=== PATIENT | female | born 1985 | race African-American/Black ===

== ENCOUNTER 2022-07-11 09:01 | Emergency (ER) | payer OTHER ==
[~2022-07-11] VITALS: Ht 160 cm; Wt 62.0 kg
[2022-07-11 09:12] VITALS: BP 127/92
[2022-07-11] MEDS ORDERED: BACITRACIN ZINC OINT UDPKT TOP ONE (11:15)
[2022-07-11] MEDS ORDERED: LIDOCAINE HCL/EPINEPHRINE 1%-EPI 1:100,000 10 ML VIAL INFIL NR (11:15)
[2022-07-11] MEDS ORDERED: LIDOCAINE HCL/EPINEPHRINE 1%-EPI 1:100,000 20 ML VIAL INFIL ONE (11:15)
== END 2022-07-11 13:21 | disposition home or self-care (01) ==
LOC: ER 09:01
DX: D17.1 Benign lipomatous neoplasm of skin and subcutaneous tissue of trunk (principal)
CPT/HCPCS: 10060; 99282; J3490

== ENCOUNTER 2024-03-18 14:15 | Emergency (ER) | payer MEDICAID, OTHER ==
[~2024-03-18] VITALS: Ht 160 cm; Wt 59.0 kg
[2024-03-18 14:20] VITALS: O2SAT 99
[2024-03-18] MEDS: ACETAMINOPHEN 325MG TABLET PO ONE (16:10)
[2024-03-18 17:37] VITALS: BP 115/63; RESP 19; TEMP 98.2
[2024-03-18] MEDS: KETOROLAC 15MG/ML VIAL IM ONE (17:46)
[2024-03-18 18:20] VITALS: PULSE 101
== END 2024-03-18 18:22 | disposition home or self-care (01) ==
LOC: ER 14:15
DX: J06.9 Acute upper respiratory infection, unspecified (principal)
CPT/HCPCS: 99283; 81025; 87430; 87420; 87070; 87804 ×2; 96372; J1885